=== PATIENT | female | born 1945 | race Caucasian/White ===

== ENCOUNTER 2018-12-21 16:47 | Emergency (ER) | payer MEDICARE, MEDICAID ==
[~2018-12-21] VITALS: Ht 177.8 cm; Wt 136.0 kg
[2018-12-21 18:02] VITALS: BP 127/94
== END 2018-12-21 22:52 | disposition left against medical advice (07) ==
LOC: ER 16:47
DX: R21 Rash and other nonspecific skin eruption (principal); Z53.21 Procedure and treatment not carried out due to patient leaving prior to being seen by health care provider

== ENCOUNTER 2019-12-27 06:41 | Day surgery (SDC) | payer MEDICARE, MEDICAID ==
[~2019-12-27] VITALS: Ht 172.7 cm; Wt 140.6 kg
[~2019-12-27 06:41] MED LIST: LACTATED RINGERS 1,000 ML IV SCH
[2019-12-27] MEDS ORDERED: PHENYLEPHRINE HCL 10% OPHTH DROPS 5ML RIGHTEYE ONE (06:45)
[2019-12-27] MEDS ORDERED: TROPICAMIDE 1% OPHTH DROPS 15ML RIGHTEYE ONE (06:45)
[2019-12-27] MEDS ORDERED: CYCLOPENTOLATE HCL 1% OPHTH DROPS 2ML RIGHTEYE ONE (06:45)
[2019-12-27] MEDS ORDERED: BALANCED SALT IRRIG SOLN COMB1 500ML OP ONE (07:00)
[2019-12-27] MEDS ORDERED: BALANCED SALT IRRIG SOLN COMB1 500ML OP STA (07:18)
[2019-12-27] MEDS ORDERED: LACTATED RINGERS 500 ML IV SCH (08:21)
[2019-12-27] MEDS ORDERED: FENTANYL CITRATE/PF 50MCG/ML 2ML VIAL ONE (08:49)
[2019-12-27] MEDS ORDERED: MIDAZOLAM HCL 2 MG/2 ML VIAL ONE (08:50)
[2019-12-27] MEDS ORDERED: HYALURONATE SODIUM 10 MG/ML 0.55ML SYRINGE IO ONE ×2 (09:01→09:11)
[2019-12-27] MEDS ORDERED: POTA20TA82 PO (09:47)
[2019-12-27] MEDS ORDERED: DIGO125T80 PO (09:47)
[2019-12-27] MEDS ORDERED: APIX5TAB PO (09:47)
[2019-12-27] MEDS ORDERED: FURO40TA5 PO (09:47)
[2019-12-27] MEDS ORDERED: METO-411 PO (09:47)
[2019-12-27] MEDS ORDERED: PREDNISOLONE ACETATE 1% OPHTH DROPS 5ML ONE (15:57)
[2019-12-27] MEDS ORDERED: CYCLOPENTOLATE HCL 1% OPHTH DROPS 2ML ONE (15:57)
[2019-12-27] MEDS ORDERED: TROPICAMIDE 1% OPHTH DROPS 15ML ONE (15:57)
[2019-12-27] MEDS ORDERED: CIPROFLOXACIN 0.3% OPHTH SOLN 2.5ML ONE (15:57)
[2019-12-27] MEDS ORDERED: LIDOCAINE HCL/PF 2% 20 MG/ML 10ML VIAL ONE (15:57)
[2019-12-27] MEDS ORDERED: TETRACAINE 0.5% OPHTH DROPS 4ML ONE (15:57)
[2019-12-27] MEDS ORDERED: PHENYLEPHRINE HCL 10% OPHTH DROPS 5ML ONE (15:57)
[2019-12-27] MEDS ORDERED: BALANCED SALT IRRIG SOLN 15ML ONE (15:57)
== END 2019-12-27 11:15 | disposition home or self-care (01) ==
LOC: OR 06:41
PROVIDERS: ATTEND Ophthalmology
DX: H25.11 Age-related nuclear cataract, right eye (principal); I48.91 Unspecified atrial fibrillation; I10 Essential (primary) hypertension; J45.909 Unspecified asthma, uncomplicated; E66.01 Morbid (severe) obesity due to excess calories; I73.9 Peripheral vascular disease, unspecified; M19.90 Unspecified osteoarthritis, unspecified site; Z68.42 Body mass index [BMI] 45.0-49.9, adult; Z79.899 Other long term (current) drug therapy; Z79.82 Long term (current) use of aspirin
CPT/HCPCS: 66984; J2250; J3010; J3490; V2632